=== PATIENT | female | born 1985 | race Caucasian/White ===

== ENCOUNTER 2025-10-08 08:18 | Outpatient (CLI) | payer OTHER, SELFPAY ==
--- NOTE | ~2025-10-08 | CT_ITS ---
EXAMINATION: CT sinus wo con DATE: 10/08/2025 08:37 INDICATION: Chronic sinusitis TECHNIQUE: Computed tomography (CT) of the paranasal sinuses was performed without intravenous contrast. The dose-length product was 352.81 mGy-cm. Automated exposure control and iterative reconstruction technique were employed. COMPARISON: None FINDINGS: There is mucosal thickening of the maxillary sinuses. Ostiomeatal units are patent. Mastoids are pneumatized. No mucoperiosteal reaction. IMPRESSION: 1. Mild maxillary sinus disease. Reviewed, dictated and finalized at location O. [employer]
== END 2025-10-08 08:19 | disposition home or self-care (01) ==
LOC: GOSHIMG 08:18
PROVIDERS: PCP Otolaryngology; Visit Provider Otolaryngology
DX: J32.0 Chronic maxillary sinusitis (principal)
CPT/HCPCS: 70486